=== PATIENT | male | born 1950 | race Caucasian/White ===

== ENCOUNTER → 2016-09-26 | Outpatient (CLI) | payer BC, OTHER ==
--- NOTE | 2016-09-26 11:49 | RAD ---
Ultrasound kidney 09/26/2016 Clinical indication: Chronic kidney disease. Comparison: Noncontrast CT abdomen and pelvis October 05, 2004. Findings: Right kidney is present measuring 11.1 cm in length. There is a simple-appearing exophytic cyst from the inferior pole the right kidney measuring 2.4 x 2.1 x 2.5 cm. Simple appearing interpolar right renal cyst measuring 2.9 x 3.0 x 2.2 cm. No right renal collecting system dilatation. Scans to the partially distended urinary bladder are within normal limits. Left kidney is present measuring up to 10.0 cm in length with simple appearing exophytic cyst from the superior pole measuring 2.7 x 2.9 x 2.8 cm. Impression: 1. Both kidneys present without hydronephrosis. 2. A few small simple appearing bilateral renal cysts.
== END | disposition home or self-care (01) ==
LOC: US 07:17
PROVIDERS: ATTEND Family Medicine
DX: N28.1 Cyst of kidney, acquired (principal)
CPT/HCPCS: 76770

== ENCOUNTER 2017-07-04 18:05 | Emergency (ER) | payer BC ==
[2017-07-04] MEDS: oxyCODONE/APAP 5/325 1 TAB TABLET PO (18:45)
== END 2017-07-04 19:35 | disposition home or self-care (01) ==
LOC: ER 18:05
DX: S22.32XA Fracture of one rib, left side, initial encounter for closed fracture (principal); Z88.6 Allergy status to analgesic agent; W01.0XXA Fall on same level from slipping, tripping and stumbling without subsequent striking against object, initial encounter; Y93.89 Activity, other specified; Y99.8 Other external cause status; Y92.89 Other specified places as the place of occurrence of the external cause
CPT/HCPCS: 71250; 99284-25

== ENCOUNTER → 2017-11-05 | Outpatient (CLI) | payer BC ==
[2017-07-04 18:15] VITALS: BP 145/98
[~2017-11-05] MED LIST: CONTRAST GIVEN. MC PRN; OXYC-323 PO
[2017-11-05] MEDS: IOHEXOL 240 MG/ML 50ML VIAL. PO ONE (08:45)
[2017-11-05] MEDS: IOHEXOL 300 MG/ML 100ML VIAL. IV ONE (09:55)
--- NOTE | 2017-11-05 13:17 | RAD ---
Multiphase CT of the abdomen and pelvis with and without contrast, 11/05/2017: HISTORY: Renal nodule Multidetector CT imaging was performed following oral and IV administration of contrast. Precontrast scans were obtained through the kidneys. Postcontrast scans were then obtained through the kidneys in arterial and excretory phases and were obtained through the entire abdomen and pelvis in a portal venous phase. There are several small well-defined low density lesions in both lobes of the liver compatible with cysts. The gallbladder is unremarkable. No pancreatic abnormality is seen. The spleen is of normal size. There is a 3.3 cm simple cyst in the anterior aspect of the right kidney. There appears to be an additional 9 mm simple cyst in the anterior aspect of the right kidney. There is a 1.2 cm medium density nodule in the lateral aspect of the right kidney which demonstrates a CT number of 44-50 Hounsfield units on all of the phases. It therefore does not enhance significantly. This is presumably a complicated cyst. A 2.2 cm nodule arising from the lower pole the right kidney demonstrates similar density measurements and lack of demonstrable enhancement. In the upper pole of the left kidney there is a 3.4 cm nodule which demonstrates a CT number of 20-25 Hounsfield units on all of the sequences. This is probably a minimally complicated cyst. The kidneys are otherwise unremarkable. There is no evidence of renal obstruction. The adrenal glands show no abnormality. The abdominal aorta is unremarkable. No abdominal or pelvic adenopathy is seen. The prostate gland is within normal limits in size. The bowel loops are unremarkable. No free fluid or free air is evident in the abdomen or pelvis. There are mild scattered degenerative changes in the spine. IMPRESSION: 1. Multiple small hepatic cysts. 2. Simple cysts in the right kidney and medium density lesions in both kidneys most compatible with complicated cysts. No enhancing renal mass is identified. 3. No acute abdominal or pelvic abnormality is detected. PQRS Compliance Statement: One or more of the following individualized dose reduction techniques were utilized for this examination: 1. Automated exposure control 2. Adjustment of the mA and/or kV according to patient size 3. Use of iterative reconstruction technique Electronically signed by: Michi Corral MD (11/05/2017 1:14 PM) [facility]
== END | disposition home or self-care (01) ==
LOC: CT 08:24
PROVIDERS: ATTEND Family Medicine
DX: N28.1 Cyst of kidney, acquired (principal); K76.89 Other specified diseases of liver; R59.0 Localized enlarged lymph nodes; N18.9 Chronic kidney disease, unspecified
CPT/HCPCS: 74178; Q9966; Q9967